=== PATIENT | female | born 1975 | race Caucasian/White ===

== ENCOUNTER 2016-08-24 21:10 | Emergency (ER) | payer OTHER ==
[~2016-08-24] VITALS: Ht 170.2 cm; Wt 55.0 kg
[~2016-08-24 21:10] MED LIST: IMIT50TA PO; LORA-474 PO; TYLETAB34 PO
[2016-08-24 21:19] VITALS: BP 151/83; PULSE 73; RESP 18; TEMP 98.3; O2SAT 100
--- NOTE | 2016-08-24 21:26 | PD ---
Physical Exam Time Seen by Provider: 21:26 Narrative 40 year-old female presents to emergency department as a transfer from [facility] [place]. Patient was seen and evaluated by Dr. Li with transfer for ultrasound and further evaluation of lower abdominal pain and CT findings of possible cholecystitis. The patient reports that she has been having lower abdominal pain which brought her to the emergency department. It is the mostly suprapubic. Currently she states she is comfortable. Denies any vaginal discharge or bleeding. Denies any nausea or vomiting. Denies any recent illnesses, fever, or chills. She has no other symptoms to report at this time. Data Data Last Documented VS Vital Signs Date Time Temp Pulse Resp B/P Pulse Ox O2 Delivery O2 Flow Rate FiO2 08/24/16 21:19 98.3 73 18 151/83 100 Orders Us Abdomen Gallbladder (08/24/16 ) Us Pelvis Comp W Doppler (08/24/16 ) MDM Medical Record Reviewed: Yes Supervised Visit with LIZBET: No Differential Diagnosis Ovarian cyst versus cholecystitis versus cholelithiasis versus UTI versus renal calculi Narrative Course 40 year-old female presents to emergency department for evaluation as a transfer from [place]. Patient appears well and without distress. Abdominal exam is essentially benign except for some suprapubic tenderness on exam here in the emergency department. Patient has been previously medicated for pain. Ultrasound is ordered. Ultrasound results gallstones without cholecystitis. There are also 2 ovarian cysts on the left without ovarian torsion. Urinalysis from [place] results moderate occult blood, positive nitrate, and many mucus. Patient will be treated for UTI. Patient will be discharged all. She is encouraged to follow- up with electronics technology department chair for further evaluation and monitoring of her cyst. She is also given information to contact general surgery if needed but agrees to return immediately with any acute worsening of symptoms. Diagnosis Primary Impression: UTI (urinary tract infection) Qualified Code: N30.01 - Acute cystitis with hematuria Additional Impressions: Ovarian cyst Cholelithiases Qualified Code: K80.20 - Calculus of gallbladder without cholecystitis without obstruction Referrals: General Surgeon Caul Puller Primary Care Physician Patient Instructions: Gallstones (ED), General Instructions, Ovarian Cyst (DC) , Urinary Tract Infection in Women (ED) Additional Instruction: Maintain adequate oral hydration Follow-up with your primary care provider Seek gynecology evaluation Seek general surgery evaluation Return immediately with any acute worsening of symptoms Med/Other Pt SpecificInfo: Prescription(s) given Scripts Phenazopyridine (Pyridium)100 Mg [id number] Mg PO Q8H PRN (DYSURIA) #15 TAB Ref 0 Prov:Frances Em 08/24/16 Naproxen 500 Mg [id number] Mg PO BID PRN (PAIN SCALE 1 TO 10) #30 TAB Ref 0 Prov:Frances Em 08/24/16 Cephalexin (Keflex)500 Mg [id number] Mg PO Q12H 7 Days Ref 0 Prov:Frances Em 08/24/16 Disposition: 01 DISCHARGE HOME Condition: Stable Frances Em Aug 24, 2016 21:26
[2016-08-24] MEDS ORDERED: CEPH-460 PO (23:16)
[2016-08-24] MEDS ORDERED: NAPR500T PO (23:16)
[2016-08-24] MEDS ORDERED: PHEN0.4T PO (23:17)
--- NOTE | 2016-08-24 23:52 | RADRPT ---
EXAM DATE/TIME: 08/24/2016 22:25 [facility] COMPARISON: No previous studies available for comparison. INDICATIONS : Right upper quadrant pain. MEDICAL HISTORY : Asthma. Anxiety. Headache. SURGICAL HISTORY : Left wrist ganglion cyst. ENCOUNTER: Initial ACUITY: 1 day PAIN SCORE: 8/10 LOCATION: Right upper quadrant MEASUREMENTS: LIVER: 15.2 cm length COMMON DUCT: 7 mm RIGHT KIDNEY: 10.5 x 4.6 x 4.0 cm FINDINGS: Large gallstones are present without gallbladder wall thickening, or pericholecystic fluid. The visu alized liver, head of the pancreas, and right kidney appear grossly intact for technique. CONCLUSION: Cholelithiasis. Katherine Contreras MD on August 24, 2016 at 23:46 Board Certified Radiologist. This report was verified electronically.
--- NOTE | 2016-08-25 00:02 | RADRPT ---
EXAM DATE/TIME: 08/24/2016 22:37 [facility] COMPARISON: CT ABDOMEN & PELVIS W CONTRAST, August 24, 2016, 17:30. INDICATIONS : Pelvic pain. MEDICAL HISTORY : . Headache. Asthma. Anxiety. SURGICAL HISTORY : Left wrist ganglion cyst. ENCOUNTER: Initial ACUITY: 1 day PAIN SCORE: 8/10 LOCATION: Bilateral pelvis MEASUREMENTS: UTERUS: 7.9 x 6.4 x 4.1 cm ENDOMETRIAL STRIPE: 9 mm RIGHT OVARY: 3.1 x 2.2 x 0.9 cm LEFT OVARY: 7.4 x 2.8 cm FINDINGS: There is no free fluid, or adnexal mass. No definite uterine mass is identified for technique. There are 2 cysts in the left ovary appear to be simple adjacent to one another measuring 3.6 and 3.1 cm i n size correspond to cystic masses on the patient's CT examination. CONCLUSION: Left ovarian cysts most likely functional, repeat pelvic ultrasound is suggested in 6 months as a conservative follow up. Katherine Contreras MD on August 25, 2016 at 0:00 Board Certified Radiologist. This report was verified electronically.
--- NOTE | 2016-08-25 00:13 | PD ---
Data Data Last Documented VS Vital Signs Date Time Temp Pulse Resp B/P Pulse Ox O2 Delivery O2 Flow Rate FiO2 08/24/16 21:19 98.3 73 18 151/83 100 Orders Us Abdomen Gallbladder (08/24/16 ) Us Pelvis Comp W Dop Transvag (08/24/16 ) MDM Supervised Visit with LIZBET: Yes Narrative Course GB US>>Cholelithiasis. pelvic US>>Left ovarian cysts most likely functional, repeat pelvic ultrasound is suggested in 6 months as a conservative follow up. Diagnosis Primary Impression: UTI (urinary tract infection) Qualified Code: N30.01 - Acute cystitis with hematuria Additional Impressions: Cholelithiases Qualified Code: K80.20 - Calculus of gallbladder without cholecystitis without obstruction Ovarian cyst Referrals: General Surgeon Mixer Attendant Primary Care Physician Patient Instructions: General Instructions, Ovarian Cyst (DC), Gallstones (ED) , Urinary Tract Infection in Women (ED) Additional Instruction: Maintain adequate oral hydration Follow-up with your primary care provider Seek gynecology evaluation Seek general surgery evaluation Return immediately with any acute worsening of symptoms Scripts Phenazopyridine (Pyridium)100 Mg [id number] Mg PO Q8H PRN (DYSURIA) #15 TAB Ref 0 Prov:Frances Em 08/24/16 Naproxen 500 Mg [id number] Mg PO BID PRN (PAIN SCALE 1 TO 10) #30 TAB Ref 0 Prov:Frances Em 08/24/16 Cephalexin (Keflex)500 Mg [id number] Mg PO Q12H 7 Days Ref 0 Prov:Frances Em 08/24/16 Disposition: 01 DISCHARGE HOME Condition: Stable Zandra Lizarraga MD Aug 25, 2016 00:13
[2016-09-19] MEDS ORDERED: PROZ20CA11 PO (15:42)
[2016-09-19] MEDS ORDERED: PANT20 PO (15:42)
[2016-09-19] MEDS ORDERED: TRAM50TA PO (16:53)
[2016-09-19] MEDS ORDERED: ROBA500T PO (16:53)
== END 2016-08-25 00:59 | disposition home or self-care (01) ==
LOC: NEPC 21:10
DX: N30.01 Acute cystitis with hematuria (principal); N83.202 Unspecified ovarian cyst, left side; K80.20 Calculus of gallbladder without cholecystitis without obstruction
CPT/HCPCS: 74177; 76705; 76830; 76856; 80053; 81001; 83690; 84702; 85025; 87077; 87086; 87186; 87491; 87591; 93975; 96361; 96365; 96368; 96375; 99285; J0744; J1170; J2405; J7030; Q9963; Q9967; 96372

== ENCOUNTER 2016-11-12 15:54 | Emergency (ER) | payer MEDICAID, OTHER ==
[~2016-11-12] VITALS: Ht 157.5 cm; Wt 56.0 kg
[~2016-11-12 15:54] MED LIST changes: -IMIT50TA PO; -LORA-474 PO; +MOBI7.5T PO; +PANT20 PO; +PROZ20CA11 PO; +ROBA500T PO; +TRAM50TA PO; -TYLETAB34 PO
[2016-11-12 15:56] VITALS: BP 133/89; PULSE 78; RESP 20; TEMP 97.8; O2SAT 100
--- NOTE | 2016-11-12 17:31 | PD ---
Physical Exam Date Seen by Provider: Nov 12, 2016 Time Seen by Provider: 17:29 Narrative 40 y/o female here with back pain s/p fall yesterday. patient landed on Back. Pain is localized to upper Lumbar Spine. No Numbness, Tingling or Radiation. X-Ray ordered. Vital Signs reviewed. Patient is Stable and awaiting Bed Placement. Data Data Last Documented VS Vital Signs Date Time Temp Pulse Resp B/P (MAP) Pulse Ox O2 Delivery O2 Flow Rate FiO2 11/12/16 15:56 97.8 78 20 133/89 (104) 100 Room Air [facility] Medical Record Reviewed: Yes Supervised Visit with LIZBET: Yes Condition: Stable Devin Wheeler Nov 12, 2016 17:31
--- NOTE | 2016-11-12 18:20 | RADRPT ---
EXAM DATE/TIME: 11/12/2016 17:44 [facility] COMPARISON: SPINE THORACIC AP/LAT/SW (3VW), October 15, 2016, 11:18. INDICATIONS : Fall. Thoracolumbar pain around T11-L2 MEDICAL HISTORY : None. SURGICAL HISTORY : None. ENCOUNTER: Subsequent ACUITY: 1 day PAIN SCORE: 9/10 LOCATION: Thoracolumbar T11-L2 FINDINGS: There is normal alignment of the thoracic vertebral bodies. Vertebral body height is maintained. No evidence of fracture or subluxation. Pedicles are intact at all levels. The paravertebral reflecti ons are not thickened. CONCLUSION: No acute disease. No significant change has occurred. Elvis Valentin MD on November 12, 2016 at 18:18 Board Certified Radiologist. This report was verified electronically.
--- NOTE | 2016-11-12 18:21 | RADRPT ---
EXAM DATE/TIME: 11/12/2016 17:44 [facility] COMPARISON: SPINE LUMBAR LTD (AP & LAT), October 15, 2016, 11:18. INDICATIONS : Fall. Thoracolumbar pain near T11-L2. MEDICAL HISTORY : None. SURGICAL HISTORY : None. ENCOUNTER: Subsequent ACUITY: 1 day PAIN SCORE: 9/10 LOCATION: Thoracolumbar T11-L2 FINDINGS: Two view examination was performed. There are five non-rib bearing vertebral bodies. The vertebral bodies are in normal alignment without evidence of subluxation or scoliosis. The disc spaces are heydi ntained. The pedicles are intact. Bony mineralization is normal. No fracture is identified. CONCLUSION: No acute disease. No significant change has occurred. Elvis Valentin MD on November 12, 2016 at 18:19 Board Certified Radiologist. This report was verified electronically.
[2016-11-12] MEDS ORDERED: ROBA500T PO (18:30)
--- NOTE | 2016-11-12 18:30 | PD ---
HPI Chief Complaint: Back/ Neck Pain or Injury Time Seen by Provider: 18:26 Travel History International Travel<30 days: No Contact w/Intl Traveler<30days: No Traveled to known affect area: No History of Present Illness HPI 40-year-old female presents to the emergency Department with complaint of low back pain after tripping over a step while caring a box and falling backwards onto her buttocks yesterday. Denies hitting her head or loss of consciousness. Denies neck pain. Denies encopresis, incontinence, saddle anesthesias. Denies paresthesias, loss of sensation, decreased range of motion, decreased strength to bilateral lower extremities. Denies fever, vomiting. Denies change in urination or stool. Denies IV drug use, cancer. Denies difficulty ambulating. Has been taking Tylenol for symptom management. Symptoms are aggravated with movement and palpation. Symptoms are mild in severity. Multiple allergies as verified on the chart. Has no medical complaints. No other modifying factors or associated signs and symptoms. PFSH Past Medical History Asthma: Yes Anxiety: Yes Diminished Hearing: No Headaches: Yes Respiratory: Yes (asthma) Migraines: Yes ?: Unknown LMP: 09/28/16 Past Surgical History Other Surgery: Yes (ganglin cyst lt wrist) Social History Alcohol Use: No Tobacco Use: No Substance Use: No Allergies-Medications (Allergen,Severity, Reaction): Coded Allergies: diclofenac (Unverified Allergy, Severe, Ulcers, 11/12/16) etodolac (Unverified Allergy, Severe, Ulcers, 11/12/16) flurbiprofen (Unverified Allergy, Severe, Ulcers, 11/12/16) ibuprofen (Unverified Allergy, Severe, Ulcers, 11/12/16) indomethacin (Unverified Allergy, Severe, Ulcers, 11/12/16) ketoprofen (Unverified Allergy, Severe, Ulcers, 11/12/16) ketorolac (Unverified Allergy, Severe, Ulcers, 11/12/16) naproxen (Unverified Allergy, Severe, Ulcers, 11/12/16) oxaprozin (Unverified Allergy, Severe, Ulcers, 11/12/16) acetaminophen (Unverified Adverse Reaction, Severe, N/V, 11/12/16) penicillin G (Unverified Adverse Reaction, Severe, HIVES, 11/12/16) propoxyphene (Unverified Adverse Reaction, Severe, N/V, 11/12/16) Reported Meds & Prescriptions Reported Meds & Active Scripts Active Robaxin (Methocarbamol) 500 Mg Tab 500 Mg PO QID PRN Mobic (Meloxicam) 7.5 Mg Tab 7.5 Mg PO DAILY Tramadol (Tramadol HCl) 50 Mg Tab 50 Mg PO Q6H PRN Robaxin (Methocarbamol) 500 Mg Tab 500 Mg PO TID PRN Reported Protonix (Pantoprazole Sodium) 20 Mg Tab 20 Mg PO BID Prozac (Fluoxetine HCl) 20 Mg Cap 20 Mg PO DAILY Review of Systems Except as stated in HPI: all other systems reviewed are Neg Physical Exam Narrative GENERAL: Well-nourished, well-developed female patient, in no acute distress; afebrile, nontoxic-appearing SKIN: Warm and dry. HEAD: Atraumatic. Normocephalic. EYES: Pupils equal and round. No scleral icterus. No injection or drainage. ENT: Mucosa pink and moist. Airway patent. NECK: Trachea midline. CARDIOVASCULAR: Regular rate. RESPIRATORY: No accessory muscle use. GASTROINTESTINAL: Rounded. MUSCULOSKELETAL: Bilateral lower extremities supple and non-tense with 2+ pedal pulses and sensory intact; with full range of motion and 5/5 strength. 2 + DTRs bilaterally. Active dorsiflexion and extension of bilateral feet. Left straight leg raise is positive for low back pain. Ambulatory in room with normal gait. Sitting up in bed at 90. No obvious deformities. No clubbing. No cyanosis. No edema. BACK: Midline point tenderness on palpation of the coccyx and lumbar spine. No obvious deformities. NEUROLOGICAL: Awake and alert. Oriented 3. No obvious cranial nerve deficits. Motor grossly within normal limits. Normal speech. Moves all extremities. 5/5 strength to all extremities. Sensory intact. PSYCHIATRIC: Appropriate mood and affect; insight and judgment normal. Data Data Last Documented VS Vital Signs Date Time Temp Pulse Resp B/P (MAP) Pulse Ox O2 Delivery O2 Flow Rate FiO2 11/12/16 15:56 97.8 78 20 133/89 (104) 100 Room Air Orders Orders Spine, Thoracic-Ap/Lat/Sw(3vw) (11/12/16 17:31) Spine, Lumbar - Ltd (Ap & Lat) (11/12/16 17:31) MDM Medical Decision Making Medical Screen Exam Complete: Yes Emergency Medical Condition: Yes Medical Record Reviewed: Yes Differential Diagnosis Fall, lumbar contusion, coccyx contusion, low back strain, thoracic back strain Narrative Course 40-year-old female with low back pain after mechanical fall yesterday. Lumbar and thoracic spine x-rays ordered in triage. Denies encopresis, incontinence, saddle anesthesias. Patient is ambulatory with normal gait in the room. No neuro deficits on exam. I offered the patient muscle relaxer in the ER and she declined. 1827: Lumbar spine and thoracic spine x-rays with no acute findings. Robaxin and Tylenol administered in the ER. Robaxin prescribed for home; patient refused to take prescription at discharge. Instructed patient to follow up with primary care provider. Patient verbalizes understanding and agreement with treatment plan. Patient is medically cleared and stable for discharge. Discussed reasons to return to the emergency department. Patient agrees with treatment plan. The patients vital signs are stable and the patient is stable for outpatient follow-up and treatment. Patient discharged home, stable and in no acute distress. Diagnosis Primary Impression: Contusion of lower back Qualified Codes: S30.0XXA - Contusion of lower back and pelvis, initial encounter Referrals: [facility] Patient Instructions: General Instructions Departure Forms: Tests/Procedures, Work Release Enter return to work date: Nov 15, 2016 Additional Instructions: Tylenol or ibuprofen as directed and as needed for pain Robaxin as prescribed and as needed for muscle spasms Heating pad and/or ice to affected area to reduce pain Avoid aggravating activities; increase activity as tolerated Follow-up with primary care provider Return to emergency department immediately with worsening of symptoms Med/Other Pt SpecificInfo: Prescription(s) given Scripts Methocarbamol (Robaxin) 500 Mg Tab 500 MG PO QID Y for MUSCLE SPASM, #30 TAB 0 Refills Prov: Radha Shelton 11/12/16 Disposition: 01 DISCHARGE HOME Condition: Stable Radha Shelton Nov 12, 2016 18:30
[2016-11-17] MEDS ORDERED: REGL5TAB PO (17:12)
[2016-11-17] MEDS ORDERED: LORA-474 PO (17:12)
== END 2016-11-12 18:52 | disposition home or self-care (01) ==
LOC: NEPK 15:54
DX: S30.0XXA Contusion of lower back and pelvis, initial encounter (principal); W01.0XXA Fall on same level from slipping, tripping and stumbling without subsequent striking against object, initial encounter
CPT/HCPCS: 72072; 72100; 99283